=== PATIENT | male | born 1980 | race Two or more races ===

== ENCOUNTER 2016-10-20 14:46 | Emergency (ER) | payer OTHER ==
[~2016-10-20] VITALS: Ht 172.7 cm; Wt 118.0 kg
[2016-10-20 14:50] VITALS: BP 149/98
[2016-10-20] MEDS ORDERED: METHOCARBAMOL 750 MG TABLET ONE (15:19)
[2016-10-20] MEDS ORDERED: KETOROLAC 30 MG/1 ML ONE (15:19)
[2016-10-20] MEDS ORDERED: KETOROLAC 30 MG/1 ML IM ONE (15:30)
[2016-10-20] MEDS ORDERED: METHOCARBAMOL 750 MG TABLET PO ONE (15:30)
== END 2016-10-20 15:34 | disposition home or self-care (01) ==
LOC: ED 15:28
DX: S39.012A Strain of muscle, fascia and tendon of lower back, initial encounter (principal); X58.XXXA Exposure to other specified factors, initial encounter; Y93.89 Activity, other specified; Y92.89 Other specified places as the place of occurrence of the external cause; Y99.8 Other external cause status
CPT/HCPCS: 99283